=== PATIENT | male | born 1955 | race Caucasian/White ===

== ENCOUNTER → 2016-09-10 | Day surgery (SDC) | payer MEDICARE ==
[~2016-09-10] VITALS: Ht 170.2 cm; Wt 91.0 kg
[~2016-09-10] MED LIST: B12-1CHW CHEW; BUPIVACAINE HCL PF 0.5% 30 ML VIAL ONE; CEPH-460 PO; DIGO0.25 PO; DILT180C PO; DOFE500 PO; FAMOTIDINE 20 MG/2 ML VIAL ONE; GLIP5TAB8 PO; HYDR-3288 PO; HYDR-3583 PO; LACTATED RINGER'S 1000 ML INJ 1,000 ML ONE; LIDOCAINE HCL 2% 50 ML VIAL ONE; LOSA25TA PO; MAGN500T4 PO; MIDAZOLAM HCL 2 MG/2 ML VIAL ONE; NORC5TAB PO; PROPOFOL 200 MG/20 ML AMP IV ONE; SITA1TAB2 PO; SODIUM CHLORIDE 0.9% INJ 50 ML ONE; VIAG25TA PO; XARE20TA PO; ceFAZolin INJ 1,000 MG VIAL ONE
[2016-09-10 07:57] VITALS: BP 169/93; PULSE 63; RESP 16; TEMP 97.6; O2SAT 97
[2016-09-10 10:20] VITALS: TEMP 97.6
[2016-09-10 11:05] VITALS: BP 125/70; PULSE 65; RESP 14; O2SAT 97
--- NOTE | 2016-09-10 11:40 | EKG ---
Date Performed: 09/10/2016 Time Performed: 08:23:54 PTAGE: 60 years EKG: Sinus rhythm . Normal ECG NO PREVIOUS TRACING DOCTOR: Everett Queen Interpretating Date/Time 09/10/2016 11:40:17
--- NOTE | 2016-09-11 11:10 | MP ---
cc: MACK SARMIENTO III, M.D. DATE OF OPERATION 09/10/2016 PREOPERATIVE DIAGNOSIS Right carpal tunnel syndrome PROCEDURE Right open carpal tunnel release. SURGEON Mack Sarmiento III, MD PROCEDURE The patient was brought to the operating room and placed supine upon the operating table. After the correct site and side of the surgery were verified by the members of each team in the room multiple times including the patient and myself and, after adequate preoperative markings and preoperative written consent were verified by the members of each team in the room multiple times including the patient and myself, and after adequate IV sedation had been achieved, the right upper extremity was prepped and draped in the traditional sterile surgical fashion, a 50/50 mixture of 2% plain lidocaine and 0.5% plain Marcaine was infiltrated in the skin and subcutaneous tissue and the base of the palm and into the carpal tunnel. The limb was exsanguinated with a gentle Hawk wrap and a highly placed well-padded axillary tourniquet was inflated to 200 mmHg for a total of 12 minutes total combined. A longitudinally oriented incision at the base of palm was made in the skin and carried down through the subcutaneous tissue. The palmar fascia was retracted in the opposite directions. The transverse carpal ligament was identified and divided in its midline from its proximal-most to its distal-most extents, completely freeing the carpal tunnel contents. There was a significantly hypertrophic tenosynovium. There were no other anatomic abnormalities identified. The carpal contents were freely decompressed. Thorough irrigation with saline was performed. The skin edges were reapproximated using running 4-0 nylon sutures. The hand and arm were thoroughly cleansed and dried. Betadine and Adaptic dressings were applied on top of the wound, followed by a bulky, soft dressing. The axillary tourniquet was released and the hand and all fingers became immediately soft, pink and warm and had brisk capillary refill of less than 2 seconds. Circumferential Hawk wrap was made in the usual fashion. The patient was awakened from anesthesia and transported to the Post-Anesthesia Care Unit awake and in stable condition. MD ARNIE Ngyuen III/NATALIE /11:03 AM /11:01 AM
== END | disposition home or self-care (01) ==
LOC: PHSDC 07:37
PROVIDERS: ATTEND Orthopaedic Surgery Hand Surgery
DX: G56.01 Carpal tunnel syndrome, right upper limb (principal); Z01.810 Encounter for preprocedural cardiovascular examination
CPT/HCPCS: 01810; 64721; 93005; J0690; J2250; J7120

== ENCOUNTER → 2016-10-29 | Day surgery (SDC) | payer MEDICARE ==
[~2016-10-29] VITALS: Ht 170.2 cm; Wt 91.0 kg
[~2016-10-29] MED LIST changes: -HYDR-3288 PO; +NEOMYCIN/POLYMYXIN 1 ML G.U. IRRIGANT TOPICAL ONE; -SODIUM CHLORIDE 0.9% INJ 50 ML ONE; +ceFAZolin 2 GM PREMIX 50 ML ONE; -ceFAZolin INJ 1,000 MG VIAL ONE
[2016-10-29 09:31] VITALS: BP 132/97; PULSE 78; RESP 20; TEMP 97.6; O2SAT 99
[2016-10-29 10:03] LABS: HEMATOCRIT 48.3 % (39.0-51.0); MEAN CELL VOLUME 82.7 FL (80.0-100.0); MEAN CORPUSCULAR HEMOGLOBIN 27.9 PG (27.0-34.0); MEAN CORPUSCULAR HGB CONC 33.7 % (32.0-36.0); PLATELET COUNT 257 TH/MM3 (150-450); RED BLOOD COUNT 5.84 MIL/MM3 (4.50-5.90); REVIEW FLAG FINAL; WHITE BLOOD COUNT 7.1 TH/MM3 (4.0-11.0)
[2016-10-29 12:17] VITALS: PULSE 68; RESP 16; TEMP 97.2; O2SAT 98
[2016-10-29 13:05] VITALS: BP 132/72
--- NOTE | 2016-10-30 15:10 | EKG ---
Date Performed: 10/29/2016 Time Performed: 09:36:16 PTAGE: 60 years EKG: Sinus bradycardia Normal ECG except for rate PREVIOUS TRACING : 09/10/2016 08.23 DOCTOR: Rafael Ferraro Interpretating Date/Time 10/30/2016 15:09:53
--- NOTE | 2016-10-30 18:54 | MP ---
cc: MACK SARMIENTO III, M.D. DATE OF SURGERY: 10/30/2016. PREOPERATIVE DIAGNOSIS: Left carpal tunnel syndrome. OPERATIVE PROCEDURE PERFORMED: Left open carpal tunnel release. SURGEON: Mack Sarmiento III, MD. DESCRIPTION OF THE PROCEDURE IN DETAIL: The patient was brought to the operating room and placed supine on the operating table. After the correct site and side of surgery were verified by members of each team in the room multiple times including the patient and myself and after adequate preoperative markings and preoperative written consent were verified by everyone and after adequate preoperative time-out was performed to everyone's satisfaction and after adequate IV sedation had been achieved, the left upper extremity was prepped and draped in the traditional sterile surgical fashion. A 50/50 mixture of 2% plain lidocaine and 0.5% plain Marcaine was infiltrated to the skin and subcutaneous tissue at the base of the palm. The limb was exsanguinated with an FABIÁN wrap. A highly placed well-padded axillary tourniquet was inflated to 200 mmHg for 10 minutes. A longitudinally oriented incision within the skin creases was made and this was carried down through the skin and subcutaneous tissue. Blunt dissection was performed. The palmar fascia was retracted in opposite directions. The transverse carpal ligament was identified and opened at its midline from its proximal-most to its distal-most extent. This completely freed the carpal tunnel contents, which had an obvious rebound. There was hypertrophic tenosynovium but otherwise no anatomic abnormalities otherwise noted. There was no mass effect. The median nerve was in continuity and otherwise looked normal. Thorough irrigation was performed. The axillary tourniquet was released and two very small subcutaneous skin bleeders were easily controlled with bipolar electrocautery. 500 mL of saline was used to irrigate out the wound. The skin edges were reapproximated using interrupted and running 4-0 nylon sutures. The hand and arm were thoroughly cleansed and dried. There was no evidence of any bleeding or hematoma formation. The capillary refill was less than 2 seconds in all fingertips. Betadine and Adaptic dressings applied atop the wound followed by a bulky soft dressing. The patient was awakened from anesthesia and transported to the post-anesthesia care unit awake and in stable condition at the end of the case. Sponge, needle injury counts were correct at the end of the case as reported by nurses in the room. MD ARNIE Nguyen III/PHOEBE /12:21 PM /6:47 PM
== END | disposition home or self-care (01) ==
LOC: PHSDC 08:27
PROVIDERS: ATTEND Orthopaedic Surgery Hand Surgery
DX: G56.02 Carpal tunnel syndrome, left upper limb (principal); E11.9 Type 2 diabetes mellitus without complications; I48.91 Unspecified atrial fibrillation; F17.290 Nicotine dependence, other tobacco product, uncomplicated; Z01.818 Encounter for other preprocedural examination; Z01.810 Encounter for preprocedural cardiovascular examination
CPT/HCPCS: 36415; 64721; 85027; 93005; J0690; J2250; J7120